=== PATIENT | female | born 1995 | race Caucasian/White ===

== ENCOUNTER 2018-03-24 23:42 | Observation (INO) ==
[2018-03-26 01:08] VITALS: RESP 18
[2018-03-26 12:01] VITALS: BP 107/64; PULSE 90; TEMP 98.6; O2SAT 99
== END 2018-03-26 14:47 ==
LOC: NEPE 23:42 → NEDA 23:42 → NEPHCDU 23:42
PROVIDERS: ADMIT Hospitalist; ATTEND Hospitalist

== ENCOUNTER 2018-03-26 12:45 | Inpatient (IN) ==
[2018-03-26] MEDS ORDERED: Aluminum/Magnesium/Simethacone Susp 30 ML UDC PO PRN (15:20)
[2018-03-26] MEDS ORDERED: Bisacodyl 10 MG Supp RECTAL PRN (15:20)
[2018-03-26] MEDS: Senna/Docusate Sodium 8.6/50 MG Tablet PO SCH (21:25)
[2018-03-27 11:17] LABS: Calcium 10.3 mg/dL (8.5-10.1); Carbon Dioxide 27.3 meq/L (21.0-32.0); Potassium 3.8 meq/L (3.5-5.1)
[2018-03-27 11:25] LABS: Chol/HDL Ratio 3.2 Ratio; HDL Cholesterol 43.1 mg/dL (40.0-60.0)
[2018-03-27] MEDS ORDERED: LORazepam 1 MG Tablet PO PRN (12:39)
[2018-03-27] MEDS: Escitalopram 10 MG Tablet PO SCH (14:19)
[2018-03-27] MEDS: Divalproex 500 MG DR Tablet PO SCH ×2 (14:19→21:34)
[2018-03-27 16:17] LABS: Hemoglobin A1c 4.7 % (4.3-6.0)
--- NOTE | 2018-03-27 17:46 | P.HPPSY ---
Provisional Diagnosis Admission Date: March 26, 2018 14:30 [place] I.: Major depressive disorder Competence Certification of Person's Competence To Provide Express and Informed Consent I have personally examined Elana Jimenez, a person being served at [facility] on, March 27, 2018 1737. Express and informed consent means consent voluntarily given in writing, by a competent person, after sufficient explanation and disclosure of the subject matter involved to enable the person to make a knowing and willful decision without any element of force, fraud, deceit, duress, or other form of constraint or coercion. This person is 18 years of age or older, is not now known to be incompetent to consent to treatment with a guardian advocate, and does not have a health care surrogate or proxy currently making medical treatment decisions. I have found this person to be one of the following: [xxx] Competent to provide express and informed consent, as defined above, for voluntary admission to this facility and is competent to provide express and informed consent for treatment. He/she has the consistent capacity to make well reasoned, willful, and knowing decisions concerning his or her medical or mental health treatment. The person fully and consistently understands the purpose of the admission for examination/placement and is fully capable of personally exercising all rights assured under [place] [] Incompetent to provide express and informed consent to voluntary admission, and this is incompetent to provide express and informed consent to treatment. The person must be transferred to involuntary status and a petition for a guardian advocate filed with the Circuit Court. [] Refusing to provide express and informed consent to voluntary admission but is competent to provide express and informed consent for treatment. The person must be discharged or transferred to involuntary status. Form shall be completed within 24 hours of a person's arrival at the receiving facility and filed in the clinical record of each person: 1. Admitted on a voluntary basis 2. Permitted to provide express and informed consent to his/her own treatment 3. Allowed to transfer from involuntary to voluntary status 4. Prior to permitting a person to consent to his or her own treatment after having been previously found incompetent to consent to treatment. History of Present Illness Capacity: Has capacity History of Present Illness: Patient is a 32-year-old woman, single, domiciled with father and stepmother, employed, with a past psychiatric history of bipolar disorder as per patient, anxiety disorder, ADHD, conduct disorder as per chart, with one previous psychiatric admissions, denies any previous suicide attempts, patient denies any self-injurious behavior but as per chart has history of cutting, with a substance use history significant for alcohol use and marijuana use with no past medical history, who was transferred from the medical floor after stabilization from overdose in the context of worsening depressive symptoms and recent suicide attempt which patient was admitted to the inpatient psychiatry unit for further evaluation and management. Patient was found participating in group, interviewed with nurse medical students. Patient states that prior to admission she had argued with her parents feeling depressed and that her father had threatened to kick her out of the house which she started having thoughts of ending her life. Patient states she regrets having attempted to end her life and states that she had been off her medication for a few months she thought she was doing well and could remain well off her medications. Patient states that her family had noticed a decline which she was having poor sleep, worsening depressive mood along with feeling helpless and hopeless. Patient reports no change in appetite energy or concentration but does feel guilty at this time due to recent suicide attempt. Patient reports that prior to her suicide attempt she had been having thoughts of not wanting to be alive for about a week increasing in intensity but denied having any method or plan during that time. Patient states that after she had taken an unknown quantity of tablets she had called her friend reported that she had overdose which EMS had arrived back to the hospital. Patient this time states that she feels "bad about it" denying any suicide delusions at this time, denies any perceptional service of delusions. Family psychiatric history: Aunt with bipolar disorder, no suicide in family Past psychiatric history: Previous psychiatric diagnoses of bipolar disorder as per patient, ADHD, anxiety disorder, chronic disorder as per chart, one previous psychiatric admissions, no previous suicide attempts, denies any self- injurious behavior but as per chart history of cutting. Patient reports having had a therapist in the past. Patient previously on Depakote, Lexapro and BuSpar. Substance use history: Alcohol use 4 times per week usually 2 drinks at a time, marijuana use 4 times per week for the past couple of months. 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 - Inpatient Certification I certify that the inpatient services were ordered in accordance with Medicare regulations governing the order. This includes certification that hospital inpatient services are reasonable and necessary and in the case of services not specified as inpatient-only under 42 CFR 419.22(n), that they are appropriately provided as inpatient services in accordance to with the 2-midnight benchmark under 43 CFR 412.3(e) I certify that inpatient psychiatric hospital services are medically necessary. Evaluation and treatment and/or diagnostic testing are expected to improve the patient's condition. The patient needs on a daily basis, active treatment furnished directly by or requiring the supervision of inpatient psychiatric facility personnel. Estimated Total Length of Stay (Days): 3 Plans for Post Hospital Care: Home Review of Systems All other systems reviewed negative except as stated in HPI PMFSH - History History Provided By: Patient - Medical History Medical History: Medical History (Last Reviewed 03/25/18 @ 18:50 by Magalie Rees MD) Bipolar disorder (Acute) ADHD Mood disorder PCOS (polycystic ovarian syndrome) - Surgical History Surgical History: Surgical History (Last Reviewed 03/25/18 @ 18:50 by Magalie Rees MD) No history of previous surgery - Family History Family History: Family History (Last Reviewed 03/25/18 @ 18:50 by Magalie Rees MD) Other No family history of cardiac disease - Tobacco History Second Hand Smoke Exposure: Yes Tobacco Use In Past 30 Days: No Smoking Status: Never smoker Tobacco Type: Cigarettes - Alcohol History How Often Do You Have a Drink Containing Alcohol: 2 to 3 times a week - Substance Use History Substance History: Active Abuse - Substance Use Type Marijuana Status: Active Route Used: By Mouth, Inhalation Reason for Use: Calm Down, Feels Good, Get High, Sleep Comment: at times she drinks alcohol but only socially Quality Measures - Psychiatric History Violence risk to others in the last 6 months: Low Violence risk to self in the last 6 months: Elevated due to recent suicide attempt. - Substance Abuse History Drug or alcohol use in the past 12 months: See HPI - Patient Strengths Patient's strengths (minimum of 2): Verbal and communicative Medications and Allergies Active Medications: Active Medications Al Hydrox/Mg Hydrox/Simethicone (Mag-Al Plus Susp Liq) 30 ml PO Q6H PRN PRN Reason: DYSPEPSIA Al Hydroxide/Mg Hydroxide (Milk Of Magnesia Liq) 30 ml PO Q12H PRN PRN Reason: Mild Constipation Bisacodyl (Dulcolax Supp) 10 mg RECTAL DAILY PRN PRN Reason: SEVERE CONSTIPATION Diphenhydramine HCl (Benadryl) 50 mg PO HS PRN PRN Reason: INSOMNIA Divalproex Sodium (Depakote Dr) 500 mg PO BID [facility] Last Admin: 03/27/18 14:19 Dose: 500 mg Escitalopram Oxalate (Lexapro) 10 mg PO DAILY [facility] Last Admin: 03/27/18 14:19 Dose: 10 mg Lactulose (Lactulose Liq) 30 ml PO DAILY PRN PRN Reason: SEVERE CONSTIPATION Lorazepam (Ativan) 1 mg PO Q6H PRN PRN Reason: ANXIETY AND/OR AGITATION Senna/Docusate Sodium ([place]-Colace) 1 tab PO BID [facility] Last Admin: 03/26/18 21:25 Dose: 1 tab Sennosides (Senokot) 17.2 mg PO Q12H PRN PRN Reason: Moderate Constipation Allergies Allergy/AdvReac Type Severity Reaction Status Date / Time No Known Allergies Allergy Weakness Uncoded 03/24/18 23:51 Home Medications Medication Instructions Recorded Confirmed Type metformin 500 mg PO BID 03/25/18 03/25/18 History Results - Labs CBC & Chem 7: 03/27/18 09:42 Labs: Laboratory Results - last 24 hr 03/27/18 03/27/18 09:42 09:42 Sodium 140 Potassium 3.8 Chloride 102 Carbon Dioxide 27.3 Anion Gap 11 BUN 5 L Creatinine 0.82 Estimated GFR 88 L Random Glucose 88 Calcium 10.3 H D Triglycerides 122 Cholesterol 138 LDL Cholesterol, Calc 71 HDL Cholesterol 43.1 Cholesterol/HDL Ratio 3.20 Beta HCG, Qual Less than 1.0 Exam Vital signs: Vital Signs 03/27/18 05:35 Temperature 98.1 F Pulse Rate 73 Respiratory Rate 16 Blood Pressure 110/60 Pulse Oximetry 99 Intake & Output 03/26/18 03/27/18 03/27/18 18:59 06:59 18:59 Weight 66.3 kg Other: Weight On Admission 66.3 kg Narrative: Patient not noted to be in acute distress, no signs of gross motor of maladies, no signs of tremor or EPS, no signs of psychomotor retardation or agitation. Mental Status Examination Appearance: Appropriate Consciousness: Alert Orientation: Person, Place, Date/Time Motor Activity: Normal gait Speech: Unremarkable Language: Adequate Fund of Knowledge: Inadequate Attention and Concentration: Adequate Memory: Unremarkable Mood: Sad Affect: Sad Thought Process & Associations: Intact, Linear Thought Content: Appropriate Hallucination Type: None Delusion Type: None Suicidal Ideation: Yes (Denies today) Suicidal Plan: No Suicidal Intention: No Homicidal Ideation: No Homicidal Plan: No Homicidal Intention: No Insight: Fair Judgment: Impulsive Assessment and Plan - Plan Plan: Estimated LOS: [5-7] days Patient is a 32-year-old woman who carries a diagnosis of bipolar disorder, anxiety disorder, ADHD, conduct disorder, with previous psychiatric admission, no history of suicide attempts was admitted after medical stabilization in the medical service for overdose from suicide attempt which patient had left suicide note in the context of recent argument with family and possibility of being thrown out of the house. Patient continues to endorse depressive symptoms, patient will resume escitalopram 10 mg p.o. daily, and Depakote 500 mg p.o. twice daily for mood stabilization. We will continue to monitor mood and behavior. Social work intervention for psychosocial assessment. Collateral information pending. Patient this time will be admitted under voluntary status and has capacity to consent for treatment. Discharge planning in progress. Justification for Continued Inpatient Stay: At risk for further decompensation if at lower level of care
[2018-03-27] MEDS: Senna/Docusate Sodium 8.6/50 MG Tablet PO SCH (21:34)
[2018-03-28] MEDS: Escitalopram 10 MG Tablet PO SCH (09:03)
[2018-03-28] MEDS: Senna/Docusate Sodium 8.6/50 MG Tablet PO SCH ×3 (09:04→22:49)
[2018-03-28] MEDS: Divalproex 500 MG DR Tablet PO SCH ×2 (09:07→22:42)
--- NOTE | 2018-03-28 14:44 | P.PNPSY ---
Subjective Remarks: Patient seen for follow, chart reviewed. Discussion nursing staff reported the patient physical on unit and interacting with other peers. Patient was found in day room noted B, cooperative. Patient states that she slept well last evening, eating and drinking well with no physical complaints at this time. Patient states that she feels the medications have been helping and that she is feeling better, feeling less depressed and denying any suicide ideations at this time. Patient reports having been upset last evening after having spoken with her father and wanting more support from him which she perceived not to have received during this conversation. She reports having been visited by her ex-boyfriend last name which was surprising to her. Patient has yet to resolve issues with her father and plans on returning back home to him upon discharge. Review of Systems All other systems reviewed negative except as stated in HPI Mental Status Examination Appearance: Appropriate Consciousness: Alert Orientation: Person, Place, Date/Time Motor Activity: Normal gait Speech: Unremarkable Language: Adequate Fund of Knowledge: Inadequate Attention and Concentration: Adequate Memory: Unremarkable Mood: Sad Affect: Sad (Lessening) Thought Process & Associations: Intact, Linear Thought Content: Appropriate Hallucination Type: None Delusion Type: None Suicidal Ideation: Yes (Denies today) Suicidal Plan: No Suicidal Intention: No Homicidal Ideation: No Homicidal Plan: No Homicidal Intention: No Insight: Fair Judgment: Impulsive Assessment and Plan - Assessment (1) Bipolar 1 disorder, depressed Code(s): F31.9 - Bipolar disorder, unspecified Status: Acute - Plan Plan: Patient this time continues with depressed mood but noting that it is lessening and improving, denies any suicide ideations today. Patient recent discord with father was a main component to her recent suicide attempt which issues between the 2 have not been resolved as of yet and patient plans on returning home to him. We will continue current treatment. We will continue to monitor mood and behavior. Patient encouraged to meet with father over the weekend to have safe disposition plan upon discharge. Justification for Continued Inpatient Stay: At risk for further decompensation if at lower level of care
[2018-03-29] MEDS: Escitalopram 10 MG Tablet PO SCH (09:26)
[2018-03-29] MEDS: Senna/Docusate Sodium 8.6/50 MG Tablet PO SCH ×2 (09:27→21:11)
[2018-03-29] MEDS: Divalproex 500 MG DR Tablet PO SCH ×2 (09:27→21:11)
--- NOTE | 2018-03-29 16:14 | P.PNPSY ---
Subjective Remarks: Pt seen and discussed with staff. She remains depressed but has been interacting with peers and attending groups. She is compliant with medications. No SI/HI Mental Status Examination Appearance: Appropriate Consciousness: Alert Orientation: Person, Place, Date/Time Motor Activity: Normal gait Speech: Unremarkable Language: Adequate Fund of Knowledge: Inadequate Attention and Concentration: Adequate Memory: Unremarkable Mood: Sad Affect: Sad (Lessening) Thought Process & Associations: Intact, Linear Thought Content: Appropriate Hallucination Type: None Delusion Type: None Suicidal Ideation: No (Denies today) Suicidal Plan: No Suicidal Intention: No Homicidal Ideation: No Homicidal Plan: No Homicidal Intention: No Insight: Fair Judgment: Impulsive Assessment and Plan - Assessment (1) Bipolar 1 disorder, depressed Code(s): F31.9 - Bipolar disorder, unspecified Status: Acute - Plan Plan: Continue current tx plan Justification for Continued Inpatient Stay: risk of decompensation
[2018-03-30] MEDS: Senna/Docusate Sodium 8.6/50 MG Tablet PO SCH ×2 (09:42→21:30)
[2018-03-30] MEDS: Escitalopram 10 MG Tablet PO SCH (09:42)
[2018-03-30] MEDS: Divalproex 500 MG DR Tablet PO SCH ×2 (09:42→20:17)
--- NOTE | 2018-03-30 17:14 | P.PNPSY ---
Subjective Remarks: Pt seen and discussed with staff. She has been compliant with medications and are today.She has been irritable and engaging in splitting behaviors. Coping skills and insight are poor. No SI/HI Mental Status Examination Appearance: Appropriate Consciousness: Alert Orientation: Person, Place, Date/Time Motor Activity: Normal gait Speech: Unremarkable Language: Adequate Fund of Knowledge: Inadequate Attention and Concentration: Adequate Memory: Unremarkable Mood: Irritable Affect: Other (restricted) Thought Process & Associations: Intact, Linear Thought Content: Appropriate Hallucination Type: None Delusion Type: None Suicidal Ideation: No (Denies today) Suicidal Plan: No Suicidal Intention: No Homicidal Ideation: No Homicidal Plan: No Homicidal Intention: No Insight: Fair Judgment: Impulsive Assessment and Plan - Assessment (1) Bipolar 1 disorder, depressed Code(s): F31.9 - Bipolar disorder, unspecified Status: Acute - Plan Plan: Continue current tx plan Justification for Continued Inpatient Stay: monitoring for safety
[2018-03-31] MEDS: Escitalopram 10 MG Tablet PO SCH (08:56)
[2018-03-31] MEDS: Divalproex 500 MG DR Tablet PO SCH (08:56)
[2018-03-31] MEDS: Senna/Docusate Sodium 8.6/50 MG Tablet PO SCH (08:56)
--- NOTE | 2018-03-31 16:08 | P.DSPSY ---
Psychiatry Discharge Summary Inpatient Psychiatric care?: Yes Advance Directives: No Mental Health Advance Directive: No Health Care Proxy: No - Admission Admission Date: March 26, 2018 14:30 - Admission Diagnosis (1) Bipolar 1 disorder, depressed Code(s): F31.9 - Bipolar disorder, unspecified Brief History: Patient is a 32-year-old woman, single, domiciled with father and stepmother, employed, with a past psychiatric history of bipolar disorder as per patient, anxiety disorder, ADHD, conduct disorder as per chart, with one previous psychiatric admissions, denies any previous suicide attempts, patient denies any self-injurious behavior but as per chart has history of cutting, with a substance use history significant for alcohol use and marijuana use with no past medical history, who was transferred from the medical floor after stabilization from overdose in the context of worsening depressive symptoms and recent suicide attempt which patient was admitted to the inpatient psychiatry unit for further evaluation and management. Patient was found participating in group, interviewed with nurse medical students. Patient states that prior to admission she had argued with her parents feeling depressed and that her father had threatened to kick her out of the house which she started having thoughts of ending her life. Patient states she regrets having attempted to end her life and states that she had been off her medication for a few months she thought she was doing well and could remain well off her medications. Patient states that her family had noticed a decline which she was having poor sleep, worsening depressive mood along with feeling helpless and hopeless. Patient reports no change in appetite energy or concentration but does feel guilty at this time due to recent suicide attempt. Patient reports that prior to her suicide attempt she had been having thoughts of not wanting to be alive for about a week increasing in intensity but denied having any method or plan during that time. Patient states that after she had taken an unknown quantity of tablets she had called her friend reported that she had overdose which EMS had arrived back to the hospital. Patient this time states that she feels "bad about it" denying any suicide delusions at this time, denies any perceptional service of delusions. Family psychiatric history: Aunt with bipolar disorder, no suicide in family Past psychiatric history: Previous psychiatric diagnoses of bipolar disorder as per patient, ADHD, anxiety disorder, chronic disorder as per chart, one previous psychiatric admissions, no previous suicide attempts, denies any self- injurious behavior but as per chart history of cutting. Patient reports having had a therapist in the past. Patient previously on Depakote, Lexapro and BuSpar. Substance use history: Alcohol use 4 times per week usually 2 drinks at a time, marijuana use 4 times per week for the past couple of months. 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 Tobacco Use In Past 30 Days: No How Often Do You Have a Drink Containing Alcohol: 2 to 3 times a week Hospital Course: Patient is a 32-year-old woman, single, domiciled with father and stepmother, employed, with a past psychiatric history of bipolar disorder as per patient, anxiety disorder, ADHD, conduct disorder as per chart, with one previous psychiatric admissions, denies any previous suicide attempts, patient denies any self-injurious behavior but as per chart has history of cutting, with a substance use history significant for alcohol use and marijuana use with no past medical history, who was transferred from the medical floor after stabilization from overdose in the context of worsening depressive symptoms and recent suicide attempt which patient was admitted to the inpatient psychiatry unit for further evaluation and management. Patient was started on escitalopram 10mg daily, Depakote 500mg BID, which she tolerated medications well with no adverse drug reactions, noted to have been depressed initially but improved throughout admission, with stable mood and was able to engage in treatment and participate in groups and activities. Patient continued to deny any suicidal or homicidal ideation nor any perceptual disturbances. She responded well to treatment, was noted to be cooperative with staff, had good behavioral control with no evidence of any verbal or physical aggressive behavior toward others and was noted to have stable mood with treatment. Upon discharge patient reported feeling good denied any perceptual disturbances nor suicidal ideations or homicidal ideations. Patient agreed to continue treatment and follow up appointments for continuity of care. Patient will be discharged back to fathers home with plan to continue recommendations on an outpatient setting. Counseling on abstinence from substance use was reviewed. Treatment plan was explained to patient which she acknowledged. .Supportive psychotherapy provided. Suicide and violence risk assessment on day of discharge both suggest lower imminent risk, and the patient's level of function is adequate for planned level of outpatient care. Patient has maximized benefit from this inpatient psychiatric hospital stay and to return to psychiatric emergency room for any concerning psychiatric symptoms. Patient agrees with plan. - Discharge Discharge Date: 03/31/18 Discharge Disposition: Home - Discharge Instructions Discharge Diet: Regular Diet Activities You Can Perform: Regular- No Restrictions - Discharge Time > 30 minutes Mental Status Examination Appearance: Appropriate Consciousness: Alert Orientation: Person, Place, Date/Time Motor Activity: Normal gait Speech: Unremarkable Language: Adequate Fund of Knowledge: Inadequate Attention and Concentration: Adequate Memory: Unremarkable Mood: Irritable Affect: Appropriate Thought Process & Associations: Intact, Goal directed, Linear Thought Content: Appropriate Hallucination Type: None Delusion Type: None Suicidal Ideation: No (Denies today) Suicidal Plan: No Suicidal Intention: No Homicidal Ideation: No Homicidal Plan: No Homicidal Intention: No Insight: Fair Judgment: Impulsive Discharge/Advance Care Plan - Results Vital Signs: Last Vital Signs Temp 98.3 F 03/30/18 18:00 Pulse 80 03/30/18 18:00 Resp 18 03/30/18 18:00 BP 104/61 03/30/18 18:00 Pulse Ox 99 03/30/18 18:00 Lab Results: Abnormal Lab Results 03/31/18 11:45 Valproic Acid 111 H* Laboratory Results Hemoglobin A1c 4.7 % (4.3-6.0) 03/27/18 09:42 Triglycerides 122 mg/dL (42-150) 03/27/18 09:42 Cholesterol 138 mg/dL (120-200) 03/27/18 09:42 LDL Cholesterol, Calc 71 mg/dL (0-99) 03/27/18 09:42 HDL Cholesterol 43.1 mg/dL (40.0-60.0) 03/27/18 09:42 Valproic Acid 111 mcg/mL (50-100) H* 03/31/18 11:45 Summary of Procedures: none Pending Results: None - Medications Number of antipsychotic medications at discharge: 0 - Discharge Care Plan Goals to Promote Your Health: * To prevent worsening of your condition and complications * To maintain your health at the optimal level Directions to Meet Your Goals: Take your medications as prescribed Follow your dietary instruction Follow activity as directed Keep your appointments as scheduled Take your immunizations and boosters as scheduled If your symptoms worsen call your PCP, if no PCP go to Urgent Care Center or Emergency Room For 15/04 questions related to your inpatient stay or results of tests pending at discharge, please contact Dr. Gabriel Hernandez MD at Smoking is Dangerous to Your Health. Avoid second hand smoking
== END 2018-03-31 16:15 | disposition home or self-care (01) ==
LOC: H260 14:30
PROVIDERS: ADMIT Student in an Organized Health Care Education/Training Program; ATTEND Student in an Organized Health Care Education/Training Program
CPT/HCPCS: 80048; 80061; 80164; 83036; 84703; Q0163